=== PATIENT | female | born 1960 | race Caucasian/White ===

== ENCOUNTER → 2018-03-19 | Outpatient (CLI) | payer OTHER ==
[~2018-03-19] MED LIST: ASPIRIN 81M81 MG/TA2 PO; CARDIZEM 90MG T90 MG PO; CEPHALEXIN500 M1 PO; FLOMAX 0.40.4 MG/CAP PO; LANOXIN 0.120.125 MG PO; NORCO 325 MG-51 TAB PO; NORVASC 5MG5 MG/TAB PO; VITAMIN D32000 IU PO; ZOFRAN 4MG T4 MG/TAB PO; ZYRTEC 10MG10 MG PO
== END ==
LOC: COL.VAS 07:39
DX: Z01.810 Encounter for preprocedural cardiovascular examination (principal); I11.9 Hypertensive heart disease without heart failure; I34.0 Nonrheumatic mitral (valve) insufficiency